=== PATIENT | female | born 1985 | race American Indian/Alaskan Native ===

== ENCOUNTER 2018-03-10 18:32 | Emergency (ER) | payer MEDICAID, OTHER ==
[2018-03-10] MEDS ORDERED: Lidocaine 2% Viscous Solution 15 ML Cup PO ONE (18:33)
[2018-03-10] MEDS ORDERED: Acetaminophen/oxyCODONE 325-5 MG Tab PO ONE (18:33)
[2018-03-10 18:37] VITALS: BP 152/95
--- NOTE | 2018-03-10 19:31 | EDM.PDOC ---
ED HPI GENERAL MEDICAL PROBLEM - General Chief Complaint: General Stated Complaint: [id number] DRY SOCKET Time Seen by Provider: 03/10/18 19:10 Source of Information: Reports: Patient History Limitations: Reports: No Limitations - History of Present Illness INITIAL COMMENTS - FREE TEXT/NARRATIVE: C/o left lower posterior dry socket. Dental extraction yesterday. Pain increasing last night, soaking gauze and packing around tooth, alternating tylenol and ibuprofen every 4 hours, using anbesol and no relief. Unable to get seen by dentist today, Plans to be at [facility] early am tomorrow. Notes infection in toooth prior to extraction and had one week of clindamycin then one week off antibiotic preceding. Reported did wekll after completing antibiotic until 2 days prior to extraction having increased pain. 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 Left Lower Tooth/Teeth Pain Score (Numeric/FACES): 9 - Related Data Allergies Allergy/AdvReac Type Severity Reaction Status Date / Time No Known Allergies Allergy Verified 03/10/18 18:54 Home Meds: Home Meds Acetaminophen [Tylenol] 325 mg PO Q6HR PRN 03/10/18 [History] Ibuprofen 200 mg PO Q4HR PRN 03/10/18 [History] Past Medical History - Past Health History Medical/Surgical History: Denies Medical/Surgical History HEENT History: Reports: Other (See Below) Other HEENT History: frequent ear infections Cardiovascular History: Reports: None Respiratory History: Reports: None Gastrointestinal History: Reports: None Genitourinary History: Reports: None Musculoskeletal History: Reports: None Neurological History: Reports: None Psychiatric History: Reports: None Endocrine/Metabolic History: Reports: None Hematologic History: Reports: None Immunologic History: Reports: None Oncologic (Cancer) History: Reports: Cervix Dermatologic History: Reports: None - Infectious Disease History Infectious Disease History: Reports: Chicken Pox - Past Surgical History Head Surgeries/Procedures: Reports: None Female Surgical History: Reports: Hysterectomy Social & Family History - Family History Family Medical History: Noncontributory - Tobacco Use Smoking Status *Q: Current Every Day Smoker Years of Tobacco use: 20 Packs/Tins Daily: 10 - Caffeine Use Caffeine Use: Reports: Coffee - Recreational Drug Use Recreational Drug Use: No ED ROS GENERAL - Review of Systems Review Of Systems: ROS reveals no pertinent complaints other than HPI. ED EXAM, GENERAL - Physical Exam Exam: See Below Exam Limited By: No Limitations General Appearance: Alert, Moderate Distress Eye Exam: Bilateral Eye: EOMI Ears: Normal External Exam, Normal TMs Nose: Normal Inspection Throat/Mouth: Other (open socket left lower 3rd molar area, small clot in csocket, minimal swelling, tender lower jaw) Neck: No: Lymphadenopathy (L), Lymphadenopathy (R) Respiratory/Chest: No Respiratory Distress Cardiovascular: Normal Peripheral Pulses, Regular Rate, Rhythm Neurological: Alert, Oriented Psychiatric: Normal Affect, Normal Mood Skin Exam: Warm, Dry, Intact, Normal Color Course - Vital Signs Last Recorded V/S: Last Vital Signs Temp 98.0 F 03/10/18 18:36 Pulse 87 03/10/18 18:36 Resp 16 03/10/18 18:36 BP 152/95 H 03/10/18 18:36 Pulse Ox 97 03/10/18 18:36 Departure - Departure Time of Disposition: 19:26 Disposition: Home, Self-Care 01 Condition: Good Clinical Impression: Dry tooth socket - Discharge Information *PRESCRIPTION DRUG MONITORING PROGRAM REVIEWED*: Yes *COPY OF PRESCRIPTION DRUG MONITORING REPORT IN PATIENT RAYMUNDO: No Instructions: Dental Dry Socket Referrals: Niru Mahajan [employer] [Primary Care Provider] - Additional Instructions: Follow up with dentist in am percocet 5/325 one every 6 hours as needed for pain #9 oral rinses after 72 hours viscous lidocaine apply thin layer to affect tooth every 2 hours as needed for pain room temperature liquids If unable to be seen by dentist tomorrow, if any facial swelling or increase in swelling of gum due to prior abscess in tooth begin amoxicillin 500mg one three times daily x one week
[2018-03-10] MEDS ORDERED: Acetaminophen/oxyCODONE 325-5 MG Tab ONE (19:34)
[2018-03-10] MEDS ORDERED: Lidocaine 2% Viscous Solution 15 ML Cup ONE (19:35)
== END 2018-03-10 19:42 | disposition home or self-care (01) ==
LOC: DL.ED 18:32
DX: M27.3 Alveolitis of jaws (principal); F17.210 Nicotine dependence, cigarettes, uncomplicated
CPT/HCPCS: 99282; A9270